=== PATIENT | female | born 2000 | race Two or more races ===

== ENCOUNTER 2021-03-25 09:53 | Emergency (ER) | payer MEDICAID ==
[~2021-03-25] VITALS: Ht 162.6 cm; Wt 54.5 kg
[2021-03-25] MEDS ORDERED: LORazepam 2 mg/ml vial IM ONE (10:20)
[2021-03-25] MEDS ORDERED: diphenhydrAMINE 50 mg/ml inj IM ONE (10:20)
[2021-03-25] MEDS ORDERED: ondansetron 4mg rapidly disintigrating tab PO ONE (10:55)
[2021-03-25] MEDS ORDERED: acetaminophen 325mg tablet PO ONE ×2 (10:55→17:35)
[2021-03-25 11:04] LABS: BASOPHILS % (AUTO) 0.5 % (0-1); EOSINOPHILS # (AUTO) 0.1 X10'3 (0-0.9); EOSINOPHILS % (AUTO) 1.3 % (0-6); HEMOGLOBIN 11.7 g/dl (12.0-16.0); LYMPHOCYTES # (AUTO) 0.8 X10'3 (1.1-4.8); LYMPHOCYTES % (AUTO) 15.5 % (21-51); MEAN CORPUSCULAR HEMOGLOBIN 22.5 PG (27.0-31.0); MEAN CORPUSCULAR HGB CONC 31.6 g/dL (33.0-36.5); MEAN CORPUSCULAR VOLUME 71.3 FL (78-98); MEAN PLATELET VOLUME 8.7 FL (7.4-10.4); MONOCYTES # (AUTO) 0.2 X10'3 (0-0.9); MONOCYTES % (AUTO) 3.4 % (2-12); NEUTROPHILS % (AUTO) 79.3 % (42-75); PLATELET COUNT 246 X10'3 (140-440); RED BLOOD COUNT 5.19 X10'6 (4.20-5.60); RED CELL DISTRIBUTION WIDTH 18.2 % (11.5-14.5); WHITE BLOOD COUNT 5.1 X10'3 (4.5-11.0)
[2021-03-25 11:28] LABS: ALANINE AMINOTRANSFERASE 18 U/L (12-78); ALBUMIN 4.4 G/DL (3.4-5.0); ALBUMIN/GLOBULIN RATIO 1.2 (1.1-1.5); ALKALINE PHOSPHATASE 79 IU/L (20-180); ANION GAP 15 (8-16); ASPARTATE AMINO TRANSFERASE 13 U/L (10-37); BILIRUBIN,TOTAL 0.4 MG/DL (0.1-1.0); BLOOD UREA NITROGEN 6 MG/DL (7-18); BUN/CREATININE RATIO 7.9 (6.6-38.0); CALCIUM 9.3 MG/DL (8.5-10.1); CHLORIDE 104 MMOL/L (99-107); CREATININE 0.76 MG/DL (0.40-0.90); GLUCOSE 120 MG/DL (70-104); SODIUM 140 MMOL/L (135-145); TOTAL CARBON DIOXIDE 21.2 MMOL/L (24-32); eGFR > 90 ML/MIN
[2021-03-25 11:32] LABS: ETHANOL < 0.010 GM/DL (0.0-0.010); POTASSIUM 2.7 MMOL/L (3.5-5.1)
--- NOTE | 2021-03-25 11:34 | NUR ---
Critical K+ 2.7. Jyoti MILES informed.
[2021-03-25] MEDS ORDERED: potassium Cl 40 mEq/0.45% sodium chloride IV soln 520ml IV ONE ×2 (12:00→12:50)
[2021-03-25] MEDS ORDERED: Potassium Cl 40 MEQ in sodium chloride 0.45% 500 ML IV ONE (12:05)
[2021-03-25] MEDS ORDERED: ondansetron/PF 4mg/2ml inj IV ONE (12:50)
[2021-03-25] MEDS: potassium CL 10mEq/100ml bag 100 ML IV SCH ×4 (13:06→16:57)
[2021-03-25] MEDS ORDERED: normal saline 1000ML IV soln IVB ONE (14:45)
[2021-03-25] MEDS ORDERED: POTASSIUM BICARB 20meq eff tab 20 MEQ TABLET.EFF PO ONE (14:50)
[2021-03-25] MEDS ORDERED: ketorolac tromethamine 15mg/ml inj. IV ONE (15:30)
[2021-03-25] MEDS ORDERED: ketorolac trometh. 30mg/ml inj. IV ONE (15:30)
[2021-03-25 15:34] LABS: URINE HCG NEGATIVE (NEG)
[2021-03-25 15:40] LABS: URINE AMPHETAMINE SCREEN NEGATIVE (Neg); URINE BARBITUATE SCREEN NEGATIVE (Neg); URINE BENZODIAZEPINES SCREEN NEGATIVE (Neg); URINE CANNABINOID SCREEN NEGATIVE (Neg); URINE COCAINE SCREEN NEGATIVE (Neg); URINE METHADONE SCREEN NEGATIVE (Neg); URINE OPIATE SCREEN NEGATIVE (Neg); URINE PHENCYCLIDINE SCREEN NEGATIVE (Neg)
[2021-03-25 17:51] VITALS: BP 118/59
== END 2021-03-25 21:30 ==
LOC: ER 09:53
DX: F79 Unspecified intellectual disabilities (principal); E87.6 Hypokalemia; D64.9 Anemia, unspecified; R51.9 Headache, unspecified; R11.0 Nausea; Z87.440 Personal history of urinary (tract) infections
CPT/HCPCS: 36415; 80053; 80305; 80320; 81025; 83735; 85025; 96365; 96366; 96372; 96375; 99285; J1200; J1885; J2060; J2405; J3480; J7030

== ENCOUNTER 2022-01-28 20:39 | Emergency (ER) | payer MEDICAID ==
[~2022-01-28] VITALS: Ht 157.5 cm; Wt 55.0 kg
[2022-01-28] MEDS ORDERED: ipratropium/albuterol 3ml nebule NEB ONE (21:40)
[2022-01-28] MEDS ORDERED: methylPREDNISolone sod succ 125mg/2ml vial IV ONE (21:45)
[2022-01-28] MEDS ORDERED: magnesium 2GM in 50ml NS 50 ML IV ONE (21:45)
[2022-01-28] MEDS ORDERED: albuterol 2.5 MG/3 ML nebule CONTNEB PRN (21:50)
[2022-01-28] MEDS ORDERED: ALB0.5UD IH (23:12)
[2022-01-28] MEDS ORDERED: ALBU6.7H14 INH (23:12)
[2022-01-28] MEDS ORDERED: PRED20TA PO (23:12)
[2022-01-28] MEDS ORDERED: normal saline 1000ML IV soln IVB ONE (23:40)
[2022-01-29] MEDS ORDERED: ondansetron/PF 4mg/2ml inj IV ONE (00:10)
--- NOTE | 2022-01-29 00:27 | NUR ---
Mother KT, will provide a ride home [phone]
[2022-01-29 01:30] VITALS: BP 94/52
== END 2022-01-29 02:23 | disposition home or self-care (01) ==
LOC: ER 20:40
DX: J45.901 Unspecified asthma with (acute) exacerbation (principal); Z20.822 Contact with and (suspected) exposure to COVID-19; F17.200 Nicotine dependence, unspecified, uncomplicated; Z79.899 Other long term (current) drug therapy
CPT/HCPCS: 71045; 87635; 93005; 94640; 94644; 96365; 96366; 96375; 99285; C9803; J2405; J2930; J3475; J7030; 94760; A4615; A7015